=== PATIENT | female | born 1995 | race Hispanic/Latino ===

== ENCOUNTER 2019-08-28 19:30 | Emergency (ER) | payer OTHER, SELFPAY ==
--- OUTSIDE RECORDS SUMMARY | 2019-08-28 19:32 | XMS REPORT ---
:1995 Author Organization [facility] t Address Critical access hospital[address] W[address]ins [address] [place] [id number] Care Team Providers Name Role Phone Unavailable Unavailable Unavailable Problems This patient has no known problems. Allergies, Adverse Reactions, Alerts This patient has no known allergies or adverse reactions. Medications This patient has no known medications. Procedures This patient has no known procedures. Results This patient has no known results.
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
[2019-08-28 21:49] VITALS: BP 136/98; TEMP 98.1; O2SAT 100
== END 2019-08-28 21:10 | disposition home or self-care (01) ==
LOC: ER 19:30
DX: S09.90XA Unspecified injury of head, initial encounter (principal); S16.1XXA Strain of muscle, fascia and tendon at neck level, initial encounter; V80.010A Animal-rider injured by fall from or being thrown from horse in noncollision accident, initial encounter; Y93.9 Activity, unspecified; Y92.9 Unspecified place or not applicable
CPT/HCPCS: 70450; 72125; 99283

== ENCOUNTER 2021-03-25 22:33 | Emergency (ER) | payer SELFPAY ==
--- OUTSIDE RECORDS SUMMARY | 2021-03-25 22:36 | XMS REPORT | Continuity of Care Document ---
:1995 Author Organization [facility] t Address [address] [place] [address] [address] [place] [address] Care Team Providers Name Role Phone Dariel WALLER Attending Clinician Unavailable Payers Payer Name Policy Type Policy Number Effective Date Expiration Date S hyun [facility] [id number] 2018 00:00:00 Problems This patient has no known problems. Allergies, Adverse Reactions, Alerts Allergy Allergy Status Severity Reaction(s) Onset Inactive Treating Comm ents Source Name Type Date Date Clinician NO KNOWN Drug Active [facility]ERG[facility] Medications This patient has no known medications. Procedures This patient has no known procedures. Encounters Start End Encounter Admission Attending Care Care Encounter Source Date/Time Date/Time Type Type Clinicians Facility Department ID 2020-02-20 2020-02-20 Outpatient Rajendra WALLER [facility] [id number] P-20 Univers 13:30:00 13:30:00 JACKELIN ity o [facility] 2020-02-20 2020-02-20 Outpatient Rajendra WALLER [facility] [id number] [facility] Results This patient has no known results.
[2021-03-25] MEDS ORDERED: LIDOCAINE 1% W/EPI 1:100,000 MDV 20 ML VIAL ONE (23:17)
[2021-03-25] MEDS ORDERED: TETANUS & DIPHTHERIA TOX,ADULT 0.5 ML VIAL ONE (23:17)
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
[2021-03-26 01:19] VITALS: TEMP 98.7
[2021-03-26 01:22] VITALS: BP 143/99; O2SAT 98
== END 2021-03-26 00:50 | disposition home or self-care (01) ==
LOC: ER 22:33
PROC: 0JQ10ZZ Repair Face Subcutaneous Tissue and Fascia, Open Approach (ICD-10-PCS; principal; 2021-03-26)
DX: S01.112A Laceration without foreign body of left eyelid and periocular area, initial encounter (principal); W18.30XA Fall on same level, unspecified, initial encounter; Y93.9 Activity, unspecified; Z23 Encounter for immunization
CPT/HCPCS: 90471; 90714; 99284